=== PATIENT | male | born 1970 | race African-American/Black ===

== ENCOUNTER 2023-09-25 23:05 | Emergency (ER) | payer OTHER, SELFPAY ==
[2023-09-25 23:17] VITALS: BP 142/93
[2023-09-26 01:35] LABS: % Basophils 1.4 % (0-2); % Eosinophils 11.4 % (0-6); % Immature Granulocytes 0.4 % (0-0.5); % Lymphocytes 41.9 % (20.5-51.1); % Monocytes 8.7 % (1.7-9.3); % Neutrophils 36.2 % (42.2-75.2); Absolute Basophils 0.1 10^3/uL (0-0.2); Absolute Eosinophils 0.9 10^3/uL (0-0.7); Absolute Lymphocytes 3.2 10^3/uL (1.2-3.4); Absolute Monocytes 0.7 10^3/uL (0.1-0.6); Absolute Neutrophils 2.8 10^3/uL (1.4-6.5); Hematocrit 41.2 % (39.0-52.0); Hemoglobin 14.4 g/dL (13.0-18.0); Mean Corpuscular Hgb 30.6 pg (27.0-31.0); Mean Corpuscular Volume 87.7 fL (80.0-94.0); Mean Platelet Volume 8.9 fL (7.4-10.4); Nucleated Red Blood Cells % 0 % (-); Platelet Count 290 10^3/uL (130-400); Red Cell Dist. Width 14.3 % (11.5-14.5); White Blood Cell Count 7.6 10^3/uL (4.8-10.8)
[2023-09-26 01:49] LABS: ALT (SGPT) 26 U/L (0-50); AST (SGOT) 30 U/L (17-59); Albumin 4.6 g/dl (3.5-5.0); Alkaline Phosphatase 78 U/L (38-126); Blood Urea Nitrogen 25 mg/dl (9-20); Calcium 10.3 mg/dl (8.4-10.2); Carbon Dioxide 26 mmol/L (22-30); Chloride 98 mmol/L (98-107); Glucose 110 mg/dl (70-99); Potassium 4.3 mmol/L (3.5-5.1); Sodium 133 mmol/L (135-145); Total Bilirubin 0.3 mg/dl (0.2-1.3); Total Protein 7.8 g/dl (6.3-8.2); eGFR > 60.00
[2023-09-26 01:59] LABS: Troponin I < 0.012 ng/ml
--- NOTE | 2023-09-26 03:16 | ED.GENMED ---
History of Present Illness
<AGA Watson - Last Filed: 09/27/23 05:57>
General
Chief Complaint: Chest Pain
Time Seen by Provider: 09/26/23 03:02
Travel History
Have you had any contact with someone who has COVID-19?: No
Do you have any symptoms of coronavirus? Fever > 100 degrees, chills, cough, shortness of breath, sore throat, loss of taste or smell, muscle aches, or headache?: No
History of Present Illness
History of Present Illness:
This is a 53 YO M with a PMH of asthma, HTN, diabetes, and ex-smoker x 30 years, presenting here today with chest pain x 1 night, that has progressively worsened since yesterday. He states the pain originally started last night. He was still
bothered by his chest pain this morning at around 9 a[address] He decided to drive to the ER due to the pain throughout the day. Pt's chest pain is located at the left upper sternal border. He describes it as sharp and localized. He denies radiation of
pain. Pt denies nausea, vomiting, and diaphoresis. He denies issues with bladder or bowel movements.
Pt reports rare alcohol use and denies drug use.
Past History
<AGA Watson - Last Filed: 09/27/23 05:57>
Past History
ED Past Medical History: HTN and NIDDM
ED Past Surgical History: None
Social History
Tobacco: Non-smoker
Review of Systems
<AGA Watson - Last Filed: 09/27/23 05:57>
Review of Systems
Allergies reviewed?: No
Constitutional: Reports not done
EENT: Reports no symptoms
Respiratory: Reports no symptoms
Cardiac: Reports chest pain
ABD/GI: Reports no symptoms
: Reports no symptoms
Musculoskeletal: Reports no symptoms
Skin: Reports no symptoms
Neurological: Reports no symptoms
Endocrine: Reports no symptoms
Hematologic/Lymphatic: Reports no symptoms
Phy Exam
<Tere Sandoval [facility] - Last Filed: 09/27/23 05:57>
General Physical Exam
General Presentation: well appearing and no apparent distress
General age: appears stated age
General Skin: warm and dry
General Habitus: normal
General Mental: alert
General Hydration: appears well hydrated
Cardiovascular Exam
Cardiovascular Exam: regular rate/rhythm
Pulmonary Exam
Pulmonary Exam: lungs clear, no respiratory distress, no rales and no crackles
Neurological Exam
Neurological Exam: alert and oriented x3
Scores
<Tere Sandoval [facility] - Last Filed: 09/27/23 05:57>
Heart Score for Chest Pain Patients
STEMI patient?: Not applicable
Course
<Tere Sandoval [facility] - Last Filed: 09/27/23 05:57>
Orders/Labs/Results
Orders:
Orders
09/25/23 23:07
EKG [Electrocardiogram (*1)] Urgent
Reason for Study: Chest Pain
EKG- Treatment ONCE
09/26/23 01:30
Complete Blood Count/With Diff Urgent
Comprehensive Metabolic Panel Urgent
Troponin I Urgent
09/26/23 05:37
Troponin I Urgent
09/26/23 06:24
CR Chest - 2 Views Urgent
Comment:
Reason For Exam: cp
Abnormal Lab Results
09/26/23
01:30
Absolute Monos (auto) 0.7 H 10^3/uL
(0.1-0.6)
Absolute Eos (auto) 0.9 H 10^3/uL
(0-0.7)
Neutrophils % 36.2 L %
(42.2-75.2)
Eosinophils % 11.4 H %
(0-6)
Sodium 133 L mmol/L
(135-145)
BUN 25 H mg/dl
(9-20)
Glucose 110 H mg/dl
(70-99)
Calcium 10.3 H mg/dl
(8.4-10.2)
09/26/23 01:30
09/26/23 01:30
Vital Signs
Initial and Last Documented VS:
Initial Vital Signs
Temp Pulse Resp BP Pulse Ox
98.1 F 74 16 142/93 99
09/25/23 23:17 09/25/23 23:17 09/25/23 23:17 09/25/23 23:17 09/25/23 23:17
Last Documented Vital Signs
Temp Pulse Resp BP Pulse Ox
98.5 F 86 16 136/71 99
09/26/23 07:06 09/26/23 07:06 09/26/23 07:06 09/26/23 07:06 09/26/23 07:06
Clarelt;Esteban Humphrey, DO - Last Filed: 09/26/23 06:25>
Orders/Labs/Results
Orders:
Orders
09/25/23 23:07
EKG [Electrocardiogram (*1)] Urgent
Reason for Study: Chest Pain
EKG- Treatment ONCE
09/26/23 01:30
Complete Blood Count/With Diff Urgent
Comprehensive Metabolic Panel Urgent
Troponin I Urgent
09/26/23 05:37
Troponin I Urgent
09/26/23 06:24
CR Chest - 2 Views Urgent
Comment:
Reason For Exam: cp
Abnormal Lab Results
09/26/23
01:30
Absolute Monos (auto) 0.7 H 10^3/uL
(0.1-0.6)
Absolute Eos (auto) 0.9 H 10^3/uL
(0-0.7)
Neutrophils % 36.2 L %
(42.2-75.2)
Eosinophils % 11.4 H %
(0-6)
Sodium 133 L mmol/L
(135-145)
BUN 25 H mg/dl
(9-20)
Glucose 110 H mg/dl
(70-99)
Calcium 10.3 H mg/dl
(8.4-10.2)
09/26/23 01:30
09/26/23 01:30
Vital Signs
Initial and Last Documented VS:
Initial Vital Signs
Temp Pulse Resp BP Pulse Ox
98.1 F 74 16 142/93 99
09/25/23 23:17 09/25/23 23:17 09/25/23 23:17 09/25/23 23:17 09/25/23 23:17
Last Documented Vital Signs
Temp Pulse Resp BP Pulse Ox
98.5 F 86 16 136/71 99
09/26/23 07:06 09/26/23 07:06 09/26/23 07:06 09/26/23 07:06 09/26/23 07:06
<AGA Watson - Last Filed: 09/27/23 05:57>
MDM/Problems Addressed
Differential Diagnosis Includes:
ACS: STEMI vs. NSTEMI, Stable vs. Unstable angina
Vasospastic angina, pericardial effusion, costochondritis (dx of exclusion), GERD
Chronic conditions affecting care: DM, HTN and Asthma
<AGA Watson - Last Filed: 09/27/23 05:57>
*Critical Care Note
Total Time (30-74mins, 75-104mins- exclusive of procedures): Not Applicable
ED Attending Note
<AGA Watson - Last Filed: 09/27/23 05:57>
-
Portions of this chart may have been created with voice recognition software.� Occasional wrong word or��sound alike� substitutions may have occurred due to the inherent limitations of voice recognition software.
<Esteban Humphrey DO - Last Filed: 09/26/23 06:25>
ED Attending Note
Patient seen and examined by attending physician: Yes
I performed the substantive portion of visit, reviewed & personally made and approve the management plan that is documented in note by myself or SALEEM.: Yes
ED Attending Note:
This a pleasant 53-year-old male that presents with substernal chest pain that began around 9 AM yesterday morning. He states that he has been having intermittent chest pain for the last few days but it worsened yesterday at 9 AM. The patient
states that he has no current symptoms, he states that the pain worsened progressively this evening which brought him into the emergency department. Patient states that the pain is on the left side and does not radiate. Denies fever, chills,
nausea or vomiting. Patient does see cardiology at [facility] but has not been there in a while and requests a local information and referral director. Patient does have a history of hypertension and diabetes. Patient was seen in conjunction with the
PA student. I have reviewed and agree with the history and treatment plan presented. On my independent physical exam, patient is awake, alert, and oriented x3
EYE: pupils equal, EOMI, anicteric
NECK: Supple, no significant adenopathy. No masses. Trachea midline
ENT: Oropharynx is clear, mmm.
CARDIAC: Regular rate and rhythm . No M/R/G
LUNGS: Clear breath sounds bilaterally, no acute respiratory distress, no wheezes/rales/rhonchi
ABDOMEN: Soft, without focal tenderness, no r/g, no cvat. Normal BSx4q
NEUROLOGICAL: Alert and oriented, no focal neuro deficits
SKIN: Warm and dry, skin intact.
MUSCULOSKELETAL: No edema, well perfused. Moves all 4 extremities
PSYCH: Normal and appropriate interaction.
Discharge Plan
Departure
Patient Disposition: Home (Routine Discharge)
Date of Disposition: 09/26/23
Time of Disposition: :24
Patient with high blood pressure during this ER visit?: Yes
Condition: Good
Discharge Problem:
Chest pain
Instructions: Chest Pain DCA Follow Up, BLOOD PRESSURE
Prescriptions:
No Action
metoprolol tartrate 100 MG tablet
100 mg PO BID
lisinopril 20 MG tablet
20 mg PO DAILY
amlodipine 10 MG tablet
10 mg PO DAILY
metformin 1,000 MG tablet
1,000 mg PO BID
albuterol sulfate 18 GM HFA aerosol inhaler
2 puff IH Q4HPRN PRN (Reason: wheezing)
lamotrigine 100 MG tablet
100 mg PO BID
escitalopram oxalate 20 MG tablet
20 mg PO DAILY
liraglutide [Victoza 2-Harjit] 0.6 MG/0.1 ML pen injector
0.6 mg SQ DAILY
azelastine-fluticasone [Dymista] 23 GM spray,non-aerosol
1 spray NS BID
Steglatro
5 mg PO DAILY
amoxicillin-pot clavulanate 1 TABLET tablet
1 tab PO Q12 Qty: 14 0RF
amoxicillin-pot clavulanate 1 TABLET tablet
1 tab PO Q12 Qty: 14 0RF
Referrals:
Opal Solorzano MD [Family Provider] -
Activity Restrictions/Additional Instructions:
It was a pleasure meeting you and taking part in your care. We hope for your continued healing and wellness.
Please read discharge instructions in their entirety. However, they are for general education and may not describe your exact diagnosis at discharge. Information on your ER visit and medical conditions were discussed with you along with appropriate
follow up information...
If indicated, please take your medications as instructed and indicated on discharge paperwork.
Please schedule a follow up appointment as directed. Call to schedule an appointment
Please return to the emergency department with ANY change in, persisting, or worsening of symptoms. If any of your symptoms do not improve, or persist, or become more severe within 6-12 hours, please return to the emergency department for further
care.
Please return to the emergency department if you develop a headache, neck pain/stiffness, fever greater than 100.4F, chest pain, shortness of breath, persistent nausea, vomiting, slurred speech, difficulty walking, numbness/tingling, weakness, signs
of infection or any other symptoms that are worrisome to you.
If you have any questions or concerns please do not hesitate to call the Hospital at or E-mail me directly at [email or web address]
It was a pleasure meeting you and taking part in your care. We hope for your continued healing and wellness.
Please read discharge instructions in their entirety. However, they are for general education and may not describe your exact diagnosis at discharge. Information on your ER visit and medical conditions were discussed with you along with appropriate
follow up information...
If indicated, please take your medications as instructed and indicated on discharge paperwork.
Please schedule a follow up appointment as directed. Call to schedule an appointment
Please return to the emergency department with ANY change in, persisting, or worsening of symptoms. If any of your symptoms do not improve, or persist, or become more severe within 6-12 hours, please return to the emergency department for further
care.
Please return to the emergency department if you develop a headache, neck pain/stiffness, fever greater than 100.4F, chest pain, shortness of breath, persistent nausea, vomiting, slurred speech, difficulty walking, numbness/tingling, weakness, signs
of infection or any other symptoms that are worrisome to you.
If you have any questions or concerns please do not hesitate to call the Hospital at or E-mail me directly at [email or web address]
Interventions
Interventions:
*Risk Screen - Suicide Last Done: 09/26/23 03:10
*General Assessment Last Done: 09/26/23 03:10
*Neglect/Abuse Screening Last Done: 09/26/23 03:10
ED- Fall Risk Assessment Last Done: 09/26/23 03:10
*ED COVID-19 Vaccine History Last Done: 09/26/23 07:06
*Nursing Disposition Last Done: 09/26/23 07:09
ED- Cardiac Assessment Last Done: 09/26/23 07:06
Discharge Date and Time
Discharge Date/Time: 09/26/23 07:10
Print Language: GEORGIAN
[2023-09-26 05:26] VITALS: BP 127/90
[2023-09-26 05:30] VITALS: BP 127/84
[2023-09-26 06:00] VITALS: BP 126/85
[2023-09-26 06:18] LABS: Troponin I < 0.012 ng/ml
[2023-09-26 07:06] VITALS: BP 136/71; BMI 27.3
== END 2023-09-26 07:10 | disposition home or self-care (01) ==
LOC: EMR 23:05
PROVIDERS: Emergency Medicine; EMERGENCY PHYSICIAN Student in an Organized Health Care Education/Training Program; FAMILY PHYSICIAN Student in an Organized Health Care Education/Training Program
DX: R07.89 Other chest pain (principal); J45.909 Unspecified asthma, uncomplicated; I10 Essential (primary) hypertension; E11.9 Type 2 diabetes mellitus without complications; Z87.891 Personal history of nicotine dependence
CPT/HCPCS: 99283; 71046; 80053; 84484; 85025; 93005